=== PATIENT | male | born 1975 | race Two or more races ===

== ENCOUNTER 2024-11-09 16:41 | Emergency (ER) | payer MEDICAID, SELFPAY ==
[2024-11-09 16:51] VITALS: BP 114/83; PULSE 86; RESP 16; TEMP 36.8; O2SAT 96; BMI 24.3
--- NOTE | 2024-11-09 16:58 | XR_ITS ---
Examination: Lumbar spine 3 views Technique one AP lateral coned lateral lower lumbar spine 3 views Exam date and time: November 09, 2024 at 1710 hrs. Indications: Injury to lower back today, lower back pain Findings: No acute lumbar fracture No spondylolisthesis Moderate disc narrowing L5-S1 Impression: No acute lumbar fracture If significant symptoms persist, consider CT scan lumbar spine without contrast follow-up
--- NOTE | 2024-11-09 16:59 | PD.EDRME ---
Rapid Medical Screening Exam RME Arrival date/time: 11/09/24 16:41 49-year-old male with no known medical history presents to the emergency room with a chief complaint of lower back pain x 2 days I have greeted and performed a focused initial assessment of this patient. A comprehensive ED assessment and evaluation of the patient, analysis of all test results, and completion of the medical decision making process will be conducted by additional ED providers. Chief Complaint: Back Pain/Injury Vital signs: Vital Signs Temperature 98.2 F 11/09/24 16:51 Pulse Rate 86 11/09/24 16:51 Respiratory Rate 16 11/09/24 16:51 Blood Pressure 114/83 11/09/24 16:51 Pulse Oximetry (%) 96 11/09/24 16:51 Oxygen Delivery Method Room Air 11/09/24 16:51 Vital signs reviewed by provider: Yes
[2024-11-09 19:23] VITALS: BP 114/78; PULSE 80; RESP 18; TEMP 36.5; O2SAT 96
== END 2024-11-09 21:56 | disposition left against medical advice (07) ==
PROVIDERS: Emergency Provider Emergency Medicine
DX: M54.50 Low back pain, unspecified (principal); Z53.29 Procedure and treatment not carried out because of patient's decision for other reasons
CPT/HCPCS: 72100; 99283

== ENCOUNTER 2024-11-10 14:11 | Emergency (ER) | payer MEDICAID, SELFPAY ==
[2024-11-10 14:20] VITALS: BP 121/81; PULSE 83; RESP 18; TEMP 36.7; O2SAT 98
--- NOTE | 2024-11-10 14:27 | PD.EDBACK ---
ED Back Injury Pain RME/HPI General Chief Complaint: Back Pain/Injury Stated Complaint: LOWER BACK PAIN, CAME YEST, WAITED 6 HRS Time Seen by Provider: 11/10/24 14:21 Source: patient Arrival date/time: 11/10/24 14:11 49-year-old male with no known medical history presents to the emergency room with a chief complaint of lower back pain. Patient states he was seen here yesterday but eloped due to the long wait times. Today he states his back feels better and he is here to get the results from his x-rays. Mode of arrival: ambulatory Limitations: no limitations Related Data Previous Rx's ?Medication ?Instructions ?Recorded ibuprofen 800 mg tablet 800 mg PO TID PRN pain #30 tabs 11/25/21 Allergies Allergy/AdvReac Type Severity Reaction Status Date / Time No Known Allergies Allergy Verified 11/10/24 14:17 Review of Systems Review of Systems Systems Reviewed: All systems reviewed, normal except as documented Constitutional Constitutional: Reports system reviewed and no additional complaints, except as documented, Denies fatigue, Denies fever(s), Denies headache(s) and Denies weakness Eyes Eyes: Reports system reviewed and no additional complaints, except as documented, Denies blurry vision and Denies change in vision ENT Ears, Nose, Mouth, and Throat: Reports system reviewed and no additional complaints, except as documented, Denies otalgia, Denies headache(s), Denies nasal congestion, Denies throat swelling and Denies vertigo Cardiovascular Cardiovascular: Reports system reviewed and no additional complaints, except as documented, Denies chest pain, Denies dyspnea and Denies dyspnea on exertion Respiratory Respiratory: Reports system reviewed and no additional complaints, except as documented, Denies chest congestion, Denies cough, Denies dyspnea, Denies dyspnea on exertion and Denies wheezing Gastrointestinal Gastrointestinal: Reports system reviewed and no additional complaints, except as documented, Denies abdominal pain, Denies cramping, Denies nausea and Denies vomiting Genitourinary Genitourinary: Reports system reviewed and no additional complaints, except as documented, Denies dysuria and Denies hematuria Musculoskeletal Musculoskeletal: Reports system reviewed and no additional complaints, except as documented and Reports back pain Integumentary/Breasts Skin/Breast: Reports system reviewed and no additional complaints, except as documented and Denies wounds Neurologic Neurologic: Reports system reviewed and no additional complaints, except as documented, Denies confusion, Denies headache(s), Denies lack of coordination, Denies vertigo and Denies weakness Psychiatric Psychiatric: Reports system reviewed and no additional complaints, except as documented, Denies anxiety, Denies confusion, Denies depression, Denies paranoia, Denies suicidal ideation and Denies tactile hallucinations Endocrine Endocrine: Reports system reviewed and no additional complaints, except as documented and Denies fatigue Hematologic/Lymphatic Hematologic/Lymphatic: Reports system reviewed and no additional complaints, except as documented and Denies lymphadenopathy Allergic/Immunologic Allergic/Immunologic: Reports system reviewed and no additional complaints, except as documented, Denies throat swelling, Denies urticaria and Denies wheezing Past Medical History Social History SMOKING STATUS: Former smoker ED Exam General Limitations: Present no limitations General appearance: Present alert and in no apparent distress Head Head exam: Present atraumatic Eye Eye exam: Present normal appearance, PERRL and EOMI ENT ENT exam: Present normal exam, normal oropharynx and mucous membranes moist Neck Neck exam: Present normal inspection, full ROM and trachea midline Chest Chest inspection: Present normal inspection and symmetric chest wall rise Respiratory Respiratory exam: Present normal lung sounds bilaterally Cardiovascular Cardiovascular exam: Present regular rate, normal rhythm and normal heart sounds Abdominal Exam Abdominal exam: Present soft and normal bowel sounds Extremities Exam Extremities exam: Present normal inspection and full ROM Back Exam Back exam: Present normal inspection, full ROM and vertebral tenderness Neurological Exam Neurological exam: Present alert, oriented X3 and CN II-XII intact Psychiatric Psychiatric exam: Present normal affect and normal mood Skin Skin exam: Present warm, dry, intact and normal color Course Quality Measures none Orders Category Date Time Status Ketorolac Inj [Toradol Inj] Med 11/10/24 14:27 Discontinued 30 mg IM X1 ONE Vital Signs Vital signs: Vital Signs Temperature 98.0 F 11/10/24 14:20 Pulse Rate 83 11/10/24 14:20 Respiratory Rate 18 11/10/24 14:20 Blood Pressure 121/81 11/10/24 14:20 Pulse Oximetry (%) 98 11/10/24 14:20 Oxygen Delivery Method Room Air 11/10/24 14:20 O2 saturation 98% within normal limits Back Pain / Injury MDM Narrative MDM Narrative:: 49-year-old male with no known medical history presents to the emergency room with a chief complaint of lower back pain. Patient states he was seen here yesterday but eloped due to the long wait times. Today he states his back feels better and he is here to get the results from his x-rays. Patient is hemodynamically stable and in no apparent distress Physical examination shows mild tenderness to the patient's back. Patient states his back feels a lot better than it did yesterday but states he is here to get the x-ray results to make sure there is nothing acute. X-ray results were given to the patient there is no acute fracture or dislocation. The patient denies any numbness to the lower extremities or any saddle anesthesia or loss of bowel or bladder function. Pain medication was given to the patient Patient was discharged and educated to follow-up with primary care provider in the next 24 to 48 hours and return to the emergency room for any evidence of worsening signs or symptoms Patient data External records reviewed:: [facility] previous records Clinical information provided by:: patient Social determinants that could affect healthcare access:: none Patient has the following chronic illnesses:: No chronic illness How is presenting disease/condition affected by chronic disease/condition?: no chronic disease Evaluation data The following diagnostics were reviewed and interpreted by me:: lab results and radiology exam(s) Lab and/or radiology exams considered but not ordered:: Labs and radiology exams considered and ordered Interpretation Summary: Lumbar [id number]: No acute lumbar fracture No spondylolisthesis Moderate disc narrowing L5-S1 Impression: No acute lumbar fracture If significant symptoms persist, consider CT scan lumbar spine without contrast follow-up Medications / Prescriptions Medications or Prescriptions considered but not ordered:: Medication given Medication administrations:: Medication Administration History Discontinued Medications Ketorolac Tromethamine (Ketorolac Inj 60 Mg/2 Ml Vial) 30 mg IM X1 ONE Stop: 11/10/24 14:28 Last Admin: 11/10/24 14:32 Dose: 30 mg Documented By: KF Medication given Consultations Consultation(s) initiated? (list below): No Diagnosis Differential diagnosis back pain/injury: lumbar radiculopathy, strain of lumbar region, thoracic back pain and discitis Most likely diagnosis given after review of the tests above:: Strain of lumbar region Admission Indicated Admission indicated?: not indicated Admission Request Was there a request for admission?: No Disposition Plan Disposition Plan: Discharge Discharge Attestation Discharge Attestation: The patient and all family members were given an opportunity to ask questions and understood the discharge instructions. Discharge instructions specifically effects, indications for sooner follow up or return to the emergency department, and the expected course of current diagnosis. Patient condition: Stable Discharge Plan Plan Patient Disposition: HOME (Self Care) Disposition Comment: Stable Prescriptions/Referrals Prescriptions/Med Rec: No Action ibuprofen 800 mg tablet 800 mg PO TID PRN (Reason: pain) Qty: 30 0RF Problem List Clinical Impression: Strain of lumbar region Patient/Caregiver Discharge Instructions Education Materials: ED Back Sprain/Strain Additional Instructions: Por favor, consulte con dinh m?dico de cabecera en las pr?ximas 24 a 48 horas. Las radiograf?as de dinh columna lumbar dieron negativo para cualquier fractura o luxaci?n aguda. Si los s?ntomas persisten, consulte con dinh m?dico de cabecera para un mayor control de dinh dolor de espalda y mayank posible derivaci?n a un especialista en columna. Si observa cualquier signo de empeoramiento de los signos o s?ntomas, acuda a urgencias de inmediato. Print Language: Beninese Stand Alone Forms: Lianna Award Info., Patient Portal Info Letter PA/MANAGER CLUB Supervising Physician PA/MANAGER CLUB Supervising Physician: Dr. Ortiz
[2024-11-10] MEDS: KETOROLAC INJ 60 MG/2 ML VIAL 30 MG IM (14:32)
== END 2024-11-10 14:37 | disposition home or self-care (01) ==
PROVIDERS: Emergency Provider Emergency Medicine
DX: S39.012A Strain of muscle, fascia and tendon of lower back, initial encounter (principal); X58.XXXA Exposure to other specified factors, initial encounter
CPT/HCPCS: 96372; 99283; J1885

== ENCOUNTER 2025-02-23 14:56 | Outpatient (RCR) | payer MEDICAID, SELFPAY ==
--- NOTE | 2025-02-23 15:20 | PT.OIERPT ---
PT OP Initial Eval Patient Information Outpatient Physical Therapy Treatment Date: 02/23/25 Visit Reasons: Rt shoulder rotator cuff Medical Diagnosis: M25.511 M25.512 Treatment Dx #1: R shoulder pain Treatment Dx #2: R shoulder weakness Start of Care: 02/23/25 Date of Onset: 04/2023 Smoking Status Smoking Status: Never smoker Initial Assessment Subjective: Pt is 49 yr old mohawk speaking male who reports R shoulder pain since April 2023 after cutting some branches with a chainsaw and doing a pushup he felt a pop. 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 Pt denies L shoulder pain. PMH: pre-dM Imaging: Large, 4 cm, full-thickness rotator cuff tear per MRI Pt goal: less pain, more strength Objective: R shoulder AROM: Strength: FF: 140 deg 3+/5 Abd: 130 deg with pain 3-/5 ER: 80 deg Full can: positive for pain Empty can: positive Painful arc: positive Drop arm: negative Assessment: Pt presents with decreased ROM, strength and function with reaching consistent with RC tear of R shoulder. Pt may benefit from skilled therapy to meet goals and has poor/fair rehab potential. The L shoulder isn't bothering him. Short Term and Intermediate Goals 1. Ind with HEP 2. Improved strength to 4/5 into FF and abduction 3. Pt will tolerate work duties with <3/10 pain Treatment Plan ? 1. Manual therapy ? 2. Therex ? 3. Modalities as indicated, moist heat, ice, estim Frequency and Duration: 1-2x a week for 8 visits Certification Dates: 02/23/25 to 05/24/25 Procedure Charges OP PT Eval Mod Complex 30 minutes: Yes
== END 2025-02-23 23:59 | disposition home or self-care (01) ==
LOC: CPTX 14:56
PROVIDERS: PCP Orthopaedic Surgery; Referring Provider Orthopaedic Surgery; Visit Provider Orthopaedic Surgery
DX: M25.511 Pain in right shoulder (principal)
CPT/HCPCS: 97162

== ENCOUNTER 2025-08-18 13:30 | Outpatient (RCR) | payer MEDICAID, SELFPAY ==
--- NOTE | 2025-08-03 10:10 | PTNOTE_ITS ---
PT OP Initial Eval Patient Information Outpatient Physical Therapy Treatment Date: 08/03/25 Visit Reasons: Rt shoulder surgery Medical Diagnosis: R RCR Treatment Dx #1: R shoulder pain Treatment Dx #2: Decreased R shoulder ROM Start of Care: 08/03/25 Date of Onset: 06/24/25 DOS Smoking Status Smoking Status: Never smoker Initial Assessment Subjective: Pt is 50 yr old ecuadorean speaking male s/p R RCR reports R shoulder pain and limited ROM. He is trying to do HEP of shoulder AAROM and reports difficulty lifting the UE. He took off the sling today and isn't wearing it but will wear it for the rest of this week. PMH: pre-DM Pt goal: to reach up and use the R shoulder without pain Objective: R shoulder PROM: FF: 90 deg Abd: 90 deg ER: 25 deg Strength: NT AROM: NT Assessment: Pt presents with decreased PROM of R shoulder and pain consistent with post op R RCR. Pt requires skilled therapy and has good rehab potential to meet goals. Short Term and Retirement Goals 1. Ind with HEP ? 2. Improved PROM of R shoulder to full 3. Improved AROM of R shoulder to full ? 3. Improved HBB ROM to L3 ? 4. Pt will reach OH x10 with <=4/10 pain Treatment Plan 1. Manual therapy ? 2. Therex ? 3. Modalities as indicated, moist heat pack, ice, electrical stimulation Frequency and Duration: 2x a week for 8 weeks plus the evaluation Certification Dates: 08/03/25 to 11/01/25 Procedure Charges OP PT Eval Mod Complex 30 minutes: Yes
--- NOTE | 2025-08-06 13:24 | PT.ODAYNRPT ---
PT Outpatient Daily Note OP Daily Note Outpatient Physical Therapy Treatment Date: 08/06/25 Visit Reasons: Rt shoulder surgery Subjective: Same as time of evaluation Objective: See F/S for therex MT: PROM FF, abd, ER x7' Assessment: PROM limited by myofascial tightness and pain, improved after MT today ER to about 40 deg Plan: Improve PROM R shoulder Length of Time (minutes) of Treatment: 30 Minutes Procedure Charges Therapeutic Exercise 30 minutes: Yes
--- NOTE | 2025-08-10 18:33 | PT.ODAYNRPT ---
PT Outpatient Daily Note OP Daily Note Outpatient Physical Therapy Treatment Date: 08/10/25 Visit Reasons: Rt shoulder surgery Subjective: Soreness of R shoulder with stretching as part of HEP Objective: See F/S for therex MT: PROM FF, abd, ER x7' Assessment: PROM limited by myofascial tightness and pain, improved after MT today ER to about 50 deg Plan: Improve PROM R shoulder Length of Time (minutes) of Treatment: 30 Minutes Procedure Charges Therapeutic Exercise 30 minutes: Yes
--- NOTE | 2025-08-13 15:23 | PT.ODAYNRPT ---
PT Outpatient Daily Note OP Daily Note Outpatient Physical Therapy Treatment Date: 08/13/25 Visit Reasons: Rt shoulder surgery Subjective: Soreness of R shoulder with stretching as part of HEP Objective: See F/S for therex MT: PROM FF, abd, ER x7' Assessment: PROM limited by myofascial tightness and pain, improved after MT today ER to about 55 deg to put hand behind the head. Plan: Improve ROM R shoulder Length of Time (minutes) of Treatment: 30 Minutes Procedure Charges Therapeutic Exercise 30 minutes: Yes
--- NOTE | 2025-08-18 14:42 | PT.ODAYNRPT ---
PT Outpatient Daily Note OP Daily Note Outpatient Physical Therapy Treatment Date: 08/18/25 Visit Reasons: Rt shoulder surgery Subjective: Pt reports he is content with how his shoulder is doing but knows there is still some limitations. As per pt he has been picking melvin from his lemon tree and carrying bags full of melvin with B UE. Objective: Please see flow sheet for ther ex list. Assessment: Pt educated on avoiding heavy or excessive OH reach with weighted objects due to current post op timeline, pt agreed. Plan: Continue with poC. progress per post op protocol. Length of Time (minutes) of Treatment: 30 Minutes Procedure Charges Therapeutic Exercise 30 minutes: Yes
== END 2025-08-26 23:59 | disposition home or self-care (01) ==
LOC: CPTX 13:30
PROVIDERS: PCP Orthopaedic Surgery; Referring Provider Orthopaedic Surgery; Visit Provider Orthopaedic Surgery
DX: M25.511 Pain in right shoulder (principal); Z98.890 Other specified postprocedural states
CPT/HCPCS: 97110; 97162